=== PATIENT | male | born 1965 | race Caucasian/White ===

== ENCOUNTER 2019-03-13 16:44 | Emergency (ER) | payer OTHER ==
[~2019-03-13] VITALS: Ht 180.3 cm; Wt 75.7 kg
[2019-03-13 16:51] VITALS: BP 136/95
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
--- NOTE | 2019-03-13 17:13 | NUR ---
PT AMBULATED TO BED 05.
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
[2019-03-13] MEDS ORDERED: KETOROLAC 60 MG/2 ML VIAL IM ONE (17:35)
--- NOTE | 2019-03-13 18:13 | NUR ---
PATIENT BACK FROM CT.
[2019-03-13 18:58] VITALS: BP 136/95
--- NOTE | 2019-03-13 18:58 | NUR ---
Patient discharged with v/s stable. Written and verbal after care instructions given and explained. Patient alert, oriented and verbalized understanding of instructions. Ambulatory with steady gait. All questions addressed prior to discharge. ID band removed. Patient advised to follow up with PMD. Rx of Motrin 800mg and Robaxin 500mg given. Patient educated on indication of medication including possible reaction and side effects. Opportunity to ask questions provided and answered.
== END 2019-03-13 18:58 | disposition home or self-care (01) ==
LOC: MED 16:44
DX: S16.1XXA Strain of muscle, fascia and tendon at neck level, initial encounter (principal); S39.012A Strain of muscle, fascia and tendon of lower back, initial encounter; R03.0 Elevated blood-pressure reading, without diagnosis of hypertension; V49.69XA Unspecified car occupant injured in collision with other motor vehicles in traffic accident, initial encounter; Y93.89 Activity, other specified; Y92.488 Other paved roadways as the place of occurrence of the external cause; Y99.8 Other external cause status
CPT/HCPCS: 72040; 72100; 73030; 96372; 99283; C1758; J1885

== ENCOUNTER 2021-10-17 09:36 | Emergency (ER) | payer OTHER ==
[~2021-10-17] VITALS: Ht 167.6 cm; Wt 80.8 kg
[2021-10-17 09:44] VITALS: BP 142/64
--- NOTE | 2021-10-17 09:48 | NUR ---
PATIENT AMBULATED TO BED 9.
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
[2021-10-17] MEDS ORDERED: LIDOCAINE MPF 1% 10 MG/ML VIAL INJ ONE (10:15)
[2021-10-17] MEDS ORDERED: CEPH-588 PO (10:50)
--- NOTE | 2021-10-17 10:58 | NUR ---
PT'S WOUND CLEANED AND IRRIGATED WITH NORMAL SALINE AND DRESSED WITH NON-ADHERENT GAUZE PAD. PT PLACED IN LEFT ALUMINUM POINTER FINGER SPLINT. CMS WNL BEFORE AND AFTER. PT TOLERATED SPLINT WELL. RN AND CYNTHIA NOTIFIED.
[2021-10-17 10:59] VITALS: BP 115/78
== END 2021-10-17 11:00 | disposition home or self-care (01) ==
LOC: MED 09:36
DX: S61.211A Laceration without foreign body of left index finger without damage to nail, initial encounter (principal); Z90.49 Acquired absence of other specified parts of digestive tract; Z98.890 Other specified postprocedural states; W26.8XXA Contact with other sharp object(s), not elsewhere classified, initial encounter; Y93.89 Activity, other specified; Y92.89 Other specified places as the place of occurrence of the external cause; Y99.8 Other external cause status
CPT/HCPCS: 12001; 73140; 99283; J2001; Q0092

== ENCOUNTER 2022-07-04 12:23 | Emergency (ER) | payer OTHER ==
[~2022-07-04] VITALS: Ht 167.6 cm; Wt 80.7 kg
[~2022-07-04 12:23] MED LIST: CEPH-588 PO
[2022-07-04 12:39] VITALS: BP 146/101
--- NOTE | 2022-07-04 13:01 | NUR ---
PT WAS W/C'D TO XRAY FOR XRAY OF FINGER.
[2022-07-04] MEDS ORDERED: NEOMYCIN/POLYMYXIN/BACITRACIN 0.9 GM/1 PKT TP ONE (13:30)
[2022-07-04] MEDS ORDERED: LIDOCAINE MPF 1% 5 ML ONE (13:53)
[2022-07-04] MEDS ORDERED: LIDOCAINE MPF 1% 10 MG/ML VIAL INJ ONE (13:55)
[2022-07-04] MEDS ORDERED: IBUP-2213 PO (14:48)
[2022-07-04 14:55] VITALS: BP 146/101
--- NOTE | 2022-07-04 14:55 | NUR ---
Patient discharged with v/s stable. Written and verbal after care instructions given and explained. Patient alert, oriented and verbalized understanding of instructions. Ambulatory with steady gait. All questions addressed prior to discharge. ID band removed. Patient advised to follow up with PMD. Rx of IBUPROFEN (SENT) given. Patient educated on indication of medication including possible reaction and side effects. Opportunity to ask questions provided and answered.
== END 2022-07-04 14:55 | disposition home or self-care (01) ==
LOC: MED 12:23
DX: S61.216A Laceration without foreign body of right little finger without damage to nail, initial encounter (principal); Z79.1 Long term (current) use of non-steroidal anti-inflammatories (NSAID); Z79.2 Long term (current) use of antibiotics; W23.0XXA Caught, crushed, jammed, or pinched between moving objects, initial encounter; Y93.89 Activity, other specified; Y92.89 Other specified places as the place of occurrence of the external cause; Y99.8 Other external cause status
CPT/HCPCS: 12001; 73130; 99283; J2001

== ENCOUNTER 2022-07-06 08:07 | Emergency (ER) | payer OTHER ==
[~2022-07-06] VITALS: Ht 167.6 cm; Wt 83.9 kg
[~2022-07-06 08:07] MED LIST changes: +IBUP-2213 PO
[2022-07-06 08:14] VITALS: BP 144/98
--- NOTE | 2022-07-06 08:40 | NUR ---
Patient discharged with v/s stable. Written and verbal after care instructions given. Patient verbalized understanding. Ambulatory with steady gait. All questions addressed prior to discharge. Advised to follow up with PMD.
--- NOTE | 2022-07-06 08:42 | NUR ---
The patient's care was reviewed and supervised by Lia Lomeli, RN, RN.
== END 2022-07-06 08:40 | disposition home or self-care (01) ==
LOC: MED 08:07
DX: S61.216D Laceration without foreign body of right little finger without damage to nail, subsequent encounter (principal); Z48.00 Encounter for change or removal of nonsurgical wound dressing; X58.XXXD Exposure to other specified factors, subsequent encounter
CPT/HCPCS: 99281

== ENCOUNTER 2022-07-13 08:23 | Emergency (ER) | payer OTHER ==
[~2022-07-13] VITALS: Ht 167.6 cm; Wt 74.8 kg
[2022-07-13 08:34] VITALS: BP 127/76
[2022-07-13] MEDS ORDERED: IBUP-2213 PO (09:27)
[2022-07-13] MEDS ORDERED: BENZ150C2 PO (09:27)
[2022-07-13 10:05] VITALS: BP 119/80
--- NOTE | 2022-07-13 10:06 | NUR ---
Patient discharged with v/s stable. Written and verbal after care instructions given and explained. Patient alert, oriented and verbalized understanding of instructions. Ambulatory with steady gait. All questions addressed prior to discharge. ID band removed. Patient advised to follow up with PMD. Rx of MOTRIN, TESSALON given. Patient educated on indication of medication including possible reaction and side effects. Opportunity to ask questions provided and answered.
== END 2022-07-13 10:06 | disposition home or self-care (01) ==
LOC: MED 08:23
DX: S61.216D Laceration without foreign body of right little finger without damage to nail, subsequent encounter (principal); U07.1 COVID-19; W22.8XXD Striking against or struck by other objects, subsequent encounter; Z79.899 Other long term (current) drug therapy
CPT/HCPCS: 99283